=== PATIENT | male | born 1965 | race Caucasian/White ===

== ENCOUNTER 2020-07-13 16:17 | Emergency (ER) | payer OTHER, SELFPAY ==
[2020-07-13 16:18] VITALS: BP 144/85; PULSE 78; RESP 18; TEMP 36.2; O2SAT 99; BMI 25.2
[2020-07-13] MEDS: Diphth,Pertuss(Acell),Tet Vac 0.5 ML Vial IM (16:48)
--- NOTE | 2020-07-13 16:55 | RAD_ITS ---
STUDY: X-RAY - LEFT HAND, ATTENTION FIRST FINGER REASON FOR EXAM: Male, 55 years old. Laceration to thumb cutting a watermelon. TECHNIQUE: 3 view(s) of the finger were obtained. COMPARISON: None. FINDINGS: Normal metacarpal head. Normal metacarpophalangeal joint. Normal proximal phalanx. Normal distal phalanx. There are mild degenerative changes of the first interphalangeal joint. Soft tissues are unremarkable. RAD/Finger(s) Min 2 Views IMPRESSION: Mild degenerative changes of the first interphalangeal joint. There is no evidence of fracture, dislocation, or radiopaque soft tissue foreign body. Electronically Signed: Toni Mata MD at 17:35 EDT , Service support ,
--- NOTE | 2020-07-13 17:44 | ED.VIS.UPPEX ---
History of Present Illness Informant: Patient, Family Occurred: Today Mechanism/Context: Incised Onset: Today Context: Sudden Onset Timing: Continuous Quality of Pain: Sharp Location: Left thumb Current Severity: Moderate Maximum Severity: Moderate Worsened by: Movement Relieved by: Rest Associated Symptoms: Negative for: Parasthesia, Weakness, Loss of Funtion Narrative: 55-year-old male who is right-hand dominant presents with a laceration to the left thumb. This occurred just prior to arrival with a knife while he was cutting a watermelon. He denies any other injuries. He is not on a blood thinner. He is complaining of some numbness distally. He denies any other injuries and he is unsure when his last tetanus immunization was. Tetanus Immunization: Unknown Prior similar symptoms: No Recent Illness/Hospitalization: No <Vidal Wise - Last Filed: 07/13/20 17:48> <Getachew Bui - Last Filed: 07/13/20 18:05> Chief Complaint: Laceration Past Medical History Prior records reviewed: Yes Past Medical History: None Surgical History: - - Tendon repair left forearm Lives: With Family Smoking Status: Former smoker Alcohol: Occasional Drugs: None <Vidal Wise - Last Filed: 07/13/20 17:48> <Getachew Bui - Last Filed: 07/13/20 18:05> - Allergies and Home Meds Allergies/Adverse Reactions: Allergies No Known Allergies Allergy (Verified 07/13/20 16:20) Primary Care Physician: Gigi Marie MD [STAFF PHYSICIAN] - As soon as possible Kurt Montgomery PA [Primary Care Provider] - Review of Systems All systems negative except as indicated General: Denies: Chills, Fever, Sweats Eyes: Denies: Visual changes - bilaterally, Diplopia ENT: Denies: Rhinorrhea, Sore throat Cardiovascular: Denies: Chest pain, Palpitations Respiratory: Denies: Dyspnea, Cough, Dyspnea on exertion Gastrointestinal: Denies: Abdominal pain, Nausea, Vomiting, Diarrhea, Melena, Hematochezia Genitourinary: Denies: Dysuria, Hematuria, Frequency Musculoskeletal: Reports: Extremity Pain. Denies: Back pain, Swelling Skin: Reports: Wounds. Denies: Rash, Abscess Neurological: Denies: Headache, Weakness, Numbness <Vidal Wise - Last Filed: 07/13/20 17:48> Physical Exam Vital Signs/Narrative: Vital Signs Temp Pulse Resp BP Pulse Ox 07/13/20 16:18 97.2 F L 78 18 144/85 H 99 Inital Vital Signs reviewed: Yes Left Hand: - - Patient has a 4 cm laceration on the volar aspect of his left thumb just proximal to the IP joint. He is able to fully flex and extend his IP joint. He has normal flexion and extension at his MCP joint as well as normal abduction and adduction. No nail injury. He is having some decreased sensation distally but his capillary refill is normal General: Well nourished, Well developed Head: Normocephalic, Atraumatic Eyes: Perrl, EOMI ENT: No Trauma, Moist Mucous Membranes Neck: Nontender, Full ROM Cardiovascular: Regular rate, Regular rhythm, No murmurs Respiratory: No distress, CTA bilaterally, Chest nontender Abdomen: Soft, Nontender, Nondistended, Normal bowel sounds Back: Nontender Skin: Normal color, No rash Neurological: Alert, Oriented x3, Cranial nerves II-XII grossly intact, Normal Strength, Normal Sensation Psychological: Normal affect <Vidal Wise - Last Filed: 07/13/20 17:48> Vital Signs/Narrative: Vital Signs Temp Pulse Resp BP Pulse Ox 07/13/20 16:18 97.2 F L 78 18 144/85 H 99 <Getachew Bui - Last Filed: 07/13/20 18:05> Diagnostic/Tx/Re-eval Impressions Finger X-Ray 07/13/20 16:55 IMPRESSION: Mild degenerative changes of the first interphalangeal joint. There is no evidence of fracture, dislocation, or radiopaque soft tissue foreign body. Electronically Signed: Toni Mata MD at 17:35 EDT , Service support , 07/13/20 16:55 Xray Finger [Finger(s) Min 2 Views] [RAD] Stat - Medical Decision Making Patient's tetanus immunization was updated. X-ray was obtained which showed no acute bony abnormality. On exam the patient does have some decreased sensation on his lateral aspect of his distal fingertip of his left thumb. After anesthetization with lidocaine the wound was explored and there was no obvious tendon or ligament injury foreign body and there is no arterial bleeding. It was closed with simple sutures a total of 7 sutures Ethilon #4?0. Discussed with patient he likely has a nerve injury and we will refer him to hand surgery Dr. Marie for close follow-up. Discussed with patient proper wound care. Patient given signs of infection to monitor for. He was advised to call on Wednesday for an appointment and if he develops worsening symptoms prior to that to return to the emergency department. <Vidal Wise - Last Filed: 07/13/20 17:48> - Medical Decision Making I supervised the PA and have performed my own pertinent history and physical. Results and treatment plan were discussed. HPI: Who was holding a watermelon in his left hand and cutting it with a knife in his right hand when the knife slipped through and cut his left thumb. He reports he has paresthesias on the ulnar side of his thumb. PE: Vitals: Stable. Afebrile. General: Well-nourished and well-developed. Head: Normocephalic atraumatic. Neck: Supple, no lymphadenopathy. No JVD. Nontender. Cardiovascular: Regular rate and rhythm. No murmurs. Respiratory: No respiratory distress. Clear to auscultation bilaterally. Abdominal: Soft, nontender, nondistended, normal bowel sounds. No guarding, rebound, or peritoneal signs. Back: Nontender. Extremities: Laceration over the ulnar side of the proximal phalanx of his left thumb. He has decrease in station light touch distal to this. He is able to flex against resistance. Skin: Normal color, no rash. Neurologic: Alert and oriented ?3. Cranial nerves II through XII are intact. Normal strength and sensation. Psych: Normal affect. Emergency Department course: X-ray shows no bony involvement. Patient had his wound anesthetized and repaired. He tolerated this well. Treatment Plan: Patient does understand that he likely cut the digital nerve. He will be discharged with instructions to follow-up with a hand surgeon within a week for another exam. Return to the emergency department for any worsening symptoms. This note was generated with [employer] dictation software. It may contain incorrect words, spelling, and punctuation that were not noted in review of the chart prior to signing. <Getachew Bui - Last Filed: 07/13/20 18:05> Procedures - Lacerations No standard instances Length: 1.57 in Depth: Skin Shape: Linear Prep: Sterile Conditions, Chlorhexadine Laceration Repair: Lidocaine, Local, Wound explored Irrigated (ml): 60 Number of Sutures/Rachelle: 7 Suture Information: Ethilon, Simple, 4-0 <Vidal Wise - Last Filed: 07/13/20 17:48> ED Disposition <Vidal Wise - Last Filed: 07/13/20 17:48> <Getachew Bui - Last Filed: 07/13/20 18:05> - Plan for ED Patient: Disposition: Home or Assisted Living Diagnosis: Laceration of thumb, left, Nerve injury Instructions: ED Laceration Ext Sutr Stap Tape Referrals: Kurt Montgomery PA [Primary Care Provider] - Gigi Marie MD [STAFF PHYSICIAN] - As soon as possible
[2020-07-13 18:16] VITALS: BP 138/67; PULSE 71; RESP 18; O2SAT 99
== END 2020-07-13 18:20 | disposition home or self-care (01) ==
PROVIDERS: Emergency Provider Physician Assistant Medical; PCP Physician Assistant
DX: S61.012A Laceration without foreign body of left thumb without damage to nail, initial encounter (principal); S64.32XA Injury of digital nerve of left thumb, initial encounter; W26.0XXA Contact with knife, initial encounter; Y93.G1 Activity, food preparation and clean up; Y92.9 Unspecified place or not applicable
CPT/HCPCS: 12002; 73140; 90471; 90715; 99284

== ENCOUNTER 2024-10-16 12:59 | Emergency (ER) | payer BC, SELFPAY ==
[2024-10-16] VITALS (10 sets, daily range): BP systolic 113–143; BP diastolic 72–92; PULSE 86–122; RESP 16–23; TEMP 36.6; O2SAT 91–94
--- NOTE | 2024-10-16 13:05 | EKG12_ITS ---
Test Reason : CP Blood Pressure : */* mmHG Vent. Rate : 108 BPM Atrial Rate : 108 BPM P-R Int : 140 ms QRS Dur : 78 ms QT Int : 334 ms P-R-T Axes : 50 82 61 degrees QTcB Int : 447 ms Sinus tachycardia Nonspecific ST and T wave abnormality Abnormal ECG Confirmed by FLOWER RICHARD, CHRISTIAN ([id number]), greeting card editor SERA LOVE ([id number]) on 10/17/2024 8:00:21 AM Referred By: Confirmed By: CHRISTIAN CRENSHAW MD
[2024-10-16 13:22] LABS: Absolute Lymphocyte Count 0.73 X10^3/uL (0.83-4.51); Absolute Neutrophil Count 5.6 X10^3/uL (2.0-7.7); Basophil# 0.02 X10^3/uL; Basophil% 0.3 % (0-1); Eosinophil# 0.01 X10^3/uL; Eosinophils% 0.1 % (0-5); Hematocrit 42.5 % (40-54); Hemoglobin 14.9 g/dL (13.0-16.5); Lymphocyte # 0.73 X10^3/ul (0.83-4.51); Lymphocyte % 10.7 % (19-41); Mean Corp Hgb Conc 35.1 g/dL (32-36); Mean Corpuscular Hgb 30.2 pg (27.0-32.0); Mean Platelet Vol. 10.9 fl (6.2-12.0); Monocyte# 0.47 X10^3/uL; Monocyte% 6.9 % (0-10); NRBC Flagged by Analyzer 0 % (0-5); Neutrophil # 5.57 X10^3/uL (2.7-7.7); Neutrophil % 81.7 % (47-70); Platelet Count 221 K/mm3 (150-450); RBC Distribution Width CV 12.3 % (11.6-14.6); RBC Distribution Width SD 38.8 fl (35.1-43.9); Red Blood Count 4.94 M/mm3 (4.6-6.2); White Blood Count 6.8 K/mm3 (4.4-11.0)
--- NOTE | 2024-10-16 13:25 | RAD_ITS ---
STUDY: X-RAY CHEST REASON FOR EXAM: Male, 59 years old. Atypical chest pain TECHNIQUE: Single AP portable view of the chest. COMPARISON: None. FINDINGS: The lungs are clear and expanded. There is no demonstrated pleural abnormality. Normal size heart. Normal mediastinum and sidney. Normal visualized pulmonary arteries. Normal visualized aortic arch and descending thoracic aorta. There are diffuse degenerative changes of the visualized thoracic spine. Normal visualized ribs, clavicles, and shoulders. There is no demonstrated abnormality of the visualized soft tissue structures of the upper abdomen. RAD/Chest 1 View (Portable) IMPRESSION: No acute pulmonary process Electronically Signed: Kurt Cook MD at 14:15 EST ,
[2024-10-16 13:36] LABS: Anion Gap 7 (5-15); BUN 15 mg/dL (7-18); Chloride 101 mmol/L (98-107); Creatinine, Serum 1.07 mg/dL (0.70-1.30); EST Glomerular Filtration Rate 75 mL/min (>60); Est Glom Filt Rate - Afr Amer 91 mL/min (>60); Glucose 184 mg/dL (74-106); Potassium 3.8 mmol/L (3.5-5.1); Sodium Level 132 mmol/L (136-145); Troponin-I HS (w/2H Reflex) 4 pg/mL (3.0-78.0)
--- NOTE | 2024-10-16 15:14 | EDS_ITS ---
HPI History of Present Illness Chief Complaint: Chest Pain Narrative Narrative: Patient is a 59-year-old male past medical history of asthma, hypertension, on metformin who presents to the emergency department the chief complaint of cough, shortness of breath, diffuse bodyaches. According to the she notes that he had this about 2 weeks ago and got over that she states that they went to [place] to visit their son for [place] and notes that when they got back they both woke up feeling ill. Patient in triage note was complaining of chest discomfort he states that his chest pain is from when he is coughing he states that he is able to ambulate without any difficulty and does not have any chest pain associated with this. They did note that he did drive to [place] and back but they state that they took several breaks. PFSH PFS Home Medications ?Medication ?Instructions ?Recorded ?Last Taken ?Type hydroxychloroquine 200 mg tablet 200 mg PO DAILYCM 05/14/14 Unknown History naproxen 375 mg-esomeprazole 20 mg 1 ea PO PRN 05/14/14 Unknown History tablet,immediate and delay release (Vimovo) oseltamivir 75 mg capsule (Tamiflu) 75 mg PO BID 5 days #10 caps 10/16/24 Unknown Rx prednisone 50 mg tablet 50 mg PO DAILY 5 days #5 tabs 10/16/24 Unknown Rx Allergy/AdvReac Type Severity Reaction Status Date / Time diphenhydramine (From AdvReac Other Verified 10/16/24 13:02 Benadryl) Surgical History no surgical history Social History Smoking Status: Never smoker ROS ROS ED ROS Narrative Constitutional: Complains of chills and headache, denies fevers, lightheadedness dizziness Eyes: Denies change in vision double vision blurry vision Cardiovascular: Denies chest pain or palpitations Respiratory: Complains cough and shortness of breath as noted above Abdomen: Denies abdominal pain vomiting diarrhea : Denies any urinary symptoms Neurological: Denies numbness, weakness, tingling Musculoskeletal: Complains of chest wall discomfort with coughing as noted above Skin: Denies rashes or lesions EXAM Physical Exam Narrative Exam Narrative: General: Patient was lying in bed rest comfortably did not appear to be acute distress Head: Atraumatic normocephalic Eyes: PERRL body, EOMI bilateral, no conjunctival injection or Neck: Soft, supple, trach midline Cardiovascular: Patient was tachycardic with a regular rhythm no murmurs gallops rubs noted Respiratory: Patient has end expiratory wheezing noted bilaterally with coarse b reath sounds noted in the left lower lobe Abdomen: Soft, nondistended, nontender to palpation Extremities: +5/5 strength noted in the bilateral upper and lower extremities, radial pulses +2/4 in the bilateral extremities, no pedal edema no exam Neurological: Patient following commands knew that he was at [facility] year is 2023 Skin: Warm, dry, intact Const Vital Signs: 10/16/24 13:02 10/16/24 13:05 10/16/24 14:23 Temperature 97.8 F Temperature Source Temporal Pulse Rate 117 H 105 H Respiratory Rate 18 18 Respiratory Effort Respiratory Pattern Blood Pressure 135/87 H 143/91 H Blood Pressure Mean 103 108 Pulse Ox 93 93 Oxygen Delivery Method Room Air Room Air Room Air 10/16/24 14:23 10/16/24 15:00 10/16/24 15:22 Temperature Temperature Source Pulse Rate 113 H 119 H Respiratory Rate 18 18 Respiratory Effort Normal Respiratory Pattern Normal Blood Pressure 139/92 H Blood Pressure Mean 107 Pulse Ox 93 Oxygen Delivery Method Room Air 10/16/24 16:00 10/16/24 17:00 10/16/24 18:00 Temperature Temperature Source Pulse Rate 122 H 111 H 99 Respiratory Rate 16 23 H 18 Respiratory Effort Respiratory Pattern Blood Pressure 124/78 H 130/82 H 118/72 Blood Pressure Mean 93 98 87 Pulse Ox 91 93 94 Oxygen Delivery Method Room Air Room Air MDM MDM MDM Narrative Medical decision making narrative: Patient is a 59-year-old male who presented to the emerged part with chief complaint of cough, diffuse bodyaches, shortness of breath. On the differential diagnose includes but not limited to asthma exacerbation, upper respiratory infection second viral etiology, pneumonia, PE, ACS. Once workup is obtained reviewed he will be reevaluated. Patient be given IV fluids, Reglan, Tylenol. Once workup is obtained reviewed he will be reevaluated. Patient CBC reviewed and showed no evidence leukocytosis white blood count normal at 6.8, hemoglobin 14.9, platelet count normal at 221. Patient's sodium was noted be 132, potassium normal 3.8, creatinine normal at 1.07. Patient's troponin was normal at 4 with delta troponin obtained normal at 7. Patient's EKG reviewed and independently interpreted by myself showed sinus tachycardia at the rate of 108 bpm. Patient's D-dimer was elevated added on a CT angiography of the chest. Patient's chest x-ray reviewed by myself and by radiology showed no acute cardiopulmonary processes. Patient CTA of the chest reviewed showed atelectasis within the dependent portion of the upper and lower lobes. Otherwise no acute cardiopulmonary pathology no evidence for pulmonary embolism. Patient ambulated well in the emergency department no evidence hypoxia. Patient will be started on Tamiflu and prednisone in the setting of influenza A which she test positive for. Discussed results with the patient he is agreeable this plan he would like to go home at this point time all question concerns answered is discharged home in stable condition. Patient states that he has enough inhalers at home and does not need prescriptions. Lab Data Labs: Laboratory Results - last 24 hr 10/16/24 10/16/24 13:10 15:39 WBC 6.8 RBC 4.94 Hgb 14.9 Hct 42.5 MCV 86.0 MCH 30.2 MCHC 35.1 RDW Std Deviation 38.8 RDW Coeff of Ruth 12.3 Plt Count 221 MPV 10.9 Immature Gran % (Auto) 0.300 Neut % (Auto) 81.7 H Lymph % (Auto) 10.7 L Hudson % (Auto) 6.9 Eos % (Auto) 0.1 Baso % (Auto) 0.3 Absolute Neuts (auto) 5.6 Absolute Lymphs (auto) 0.73 L Nucleated RBC % 0 D-Dimer Quant (PE/DVT) 0.71 H* Sodium 132 L Potassium 3.8 Chloride 101 Carbon Dioxide 24.0 Anion Gap 7 BUN 15 Creatinine 1.07 Est GFR (MDRD) Af Amer 91 Est GFR (MDRD) Non-Af 75 BUN/Creatinine Ratio 14.0 Glucose 184 H Calcium 9.0 Troponin I High Sens 4 7 Radiography Diagnostic Testing: Clinical Impression(s) from Imaging Studies Chest X-Ray 10/16/24 13:25 IMPRESSION: No acute pulmonary process Electronically Signed: Kurt Cook MD at 14:15 EST , Chest CTA 10/16/24 16:56 IMPRESSION: Atelectasis within the dependent portion of the upper and lower lobes.. Otherwise no acute cardiopulmonary pathology. No evidence for pulmonary embolus Electronically Signed: Benoit Ba MD at 18:21 EST Reading Location ID and State: [address] [place] [address] Tel , Service support , Discharge Plan Triage Chief Complaint: Chest Pain ED Provider: Brando Will Dx/Rx/DC Orders Clinical Impression: Influenza A, Shortness of breath, Asthma exacerbation Prescriptions: New oseltamivir [Tamiflu] 75 mg capsule 75 mg PO BID 5 Days Qty: 10 0RF prednisone 50 mg tablet 50 mg PO DAILY 5 Days Qty: 5 0RF No Action hydroxychloroquine 200 MG tablet 200 mg PO DAILYCM Patient Comments: TAKES 2 TABS DAILY, DOSE ? FOR TENDON INFLAMMATION naproxen-esomeprazole [Vimovo] 1 EACH tablet,IR,delayed rel,biphasic 1 ea PO PRN Patient Comments: DOSE ? FOR PAIN Primary Care Provider: Laura Whitaker Referrals: Laura Whitaker, [employer] [Primary Care Provider] - Activity Restrictions/Additional Instructions: Take Tamiflu and steroids as prescribed. Follow-up with your doctor in the outpatient setting. Return with worsening symptoms or any other concerns. You did test positive for influenza A. Print Language: Slovak Disposition Disposition: Home, Self Care
[2024-10-16 15:15] LABS: Reflex Troponin-HS? (from REC) Y
[2024-10-16] MEDS: predniSONE 20 MG Tablet 60 MG PO (15:18)
[2024-10-16] MEDS: Acetaminophen 500 MG Tablet 1000 MG PO (15:18)
[2024-10-16] MEDS: Metoclopramide 10 MG/2 ML Vial IV (15:22)
[2024-10-16] MEDS: Ipratropium/Albuterol Sulfate 3 ML AMPUL.NEB INHALATION ×3 (15:22)
[2024-10-16] MEDS: 0.9% Normal Saline (1000mL) 1,000 ML 999 ML IV (15:30)
[2024-10-16 16:32] LABS: Troponin-I HS 7 pg/mL (3.0-78.0)
[2024-10-16 16:53] LABS: D-Dimer Quantitative (DVT/PE) 0.71 FEU/ug/m (0.27-0.49)
--- NOTE | 2024-10-16 16:56 | CT_ITS ---
STUDY: CTA CHEST REASON FOR EXAM: Male, 59 years old. sob, elevated dimer RADIATION DOSAGE (If Supplied By Facility): CTDIvol = ( 12.8 ) mGy, DLP = ( 450.96 ) mGycm TECHNIQUE: The examination was performed with the intravenous administration of IV 100mL Isovue-370. Post-processing of the angiographic images was performed, with multiplanar reformation and 3D reconstruction. Individualized dose optimization techniques were used for this CT. COMPARISON: None. FINDINGS: Normal enhancement of the main pulmonary artery and right and left pulmonary arteries. Normal enhancement of the bilateral peripheral pulmonary arteries. There is no demonstrated pulmonary embolism. Normal thoracic aorta and visualized great vessels. There is no demonstrated aortic dissection. Normal heart and pericardium. Mild coronary artery calcification Normal mediastinum. Normal hilar regions. Normal visualized trachea and bronchi. The lungs are well expanded. There is minor atelectasis within the dependent portion of the upper and lower lobes Normal pleura. Normal chest wall structures. Dorsal spine demonstrates degenerative changes Normal visualized upper abdomen. CT/CTA Chest W/WO Contrast IMPRESSION: Atelectasis within the dependent portion of the upper and lower lobes.. Otherwise no acute cardiopulmonary pathology. No evidence for pulmonary embolus Electronically Signed: Benoit Ba MD at 18:21 EST ,
== END 2024-10-16 19:21 | disposition home or self-care (01) ==
PROVIDERS: Emergency Provider Emergency Medicine; PCP Clinical Nurse Specialist Adult Health; Visit Provider Emergency Medicine
DX: J10.1 Influenza due to other identified influenza virus with other respiratory manifestations (principal); J45.901 Unspecified asthma with (acute) exacerbation; I10 Essential (primary) hypertension; Z79.899 Other long term (current) drug therapy
CPT/HCPCS: 71045; 71275; 80048; 84484; 85025; 85379; 87631; 93005; 94640; 96361; 96374; 99284; Q9967; A4216